=== PATIENT | female | born 1990 ===

== ENCOUNTER 2017-02-03 00:37 | Emergency (ER) | payer SELFPAY ==
[2017-02-03] MEDS ORDERED: Sodium Chloride 0.9% 1,000 ML IV ONE (00:55)
[2017-02-03] MEDS ORDERED: DiphenhydrAMINE 50 mg/ml Inj IVP STA (00:55)
--- NOTE | 2017-02-03 00:56 | C.PDOC ---
History Of Present Illness Patient presents to the ER with a sensation of her tongue swelling and difficulty swallowing that began at 21:00. Patient has not had any recent exposure to allergens, however, she reports drinking a new beer. Patient speaking in 4-5 sentences; denies fever, chills, nausea or vomiting. Time Seen by Provider: 02/03/17 00:54 Chief Complaint (Nursing): Allergic Reaction History Per: Patient History/Exam Limitations: no limitations Onset/Duration Of Symptoms: Hrs (21:00) Current Symptoms Are (Timing): Still Present Context: Food (Beer) Possible Cause: Food (Beer) Associated Symptoms: Swelling (Tongue), Trouble Swallowing Home/EMS Treatment: None Recent travel outside of the [place]: No Past Medical History Reviewed: Historical Data, Nursing Documentation, Vital Signs Vital Signs: Last Vital Signs Temp 97.9 F 02/03/17 02:43 Pulse 67 02/03/17 02:43 Resp 18 02/03/17 02:43 BP 121/75 02/03/17 02:43 Pulse Ox 96 02/03/17 02:43 - Medical History PMH: No Chronic Diseases Surgical History: No Surg Hx Family History: States: No Known Family Hx - Social History Hx Alcohol Use: Yes Hx Substance Use: No - Immunization History Hx Tetanus Toxoid Vaccination: Yes Hx Influenza Vaccination: No Hx Pneumococcal Vaccination: No Review Of Systems Constitutional: Negative for: Fever, Chills ENT: Positive for: Mouth Swelling (Tongue), Other (Difficulty swallowing) Gastrointestinal: Negative for: Nausea, Vomiting Physical Exam - Physical Exam Appears: Non-toxic Skin: Warm, Dry Ear(s): Bilateral: Normal Oral Mucosa: Moist Tongue: Normal Appearing, No Swelling Lips: Normal Appearing, No Swelling Gingiva: Normal Appearing, No Swelling Throat: Normal, No Erythema, No Other (Swelling) Chest: Symmetrical, No Tenderness Cardiovascular: Rhythm Regular, No Murmur Respiratory: No Rales, No Rhonchi, No Wheezing Gastrointestinal/Abdominal: Soft, No Tenderness Neurological/Psych: Oriented x3 ED Course And Treatment O2 Sat by Pulse Oximetry: 97 (Room air) Pulse Ox Interpretation: Normal Progress Note: Benadryl, pepcid, solu-medrol and IV fluids administered. Critical Care Time - Critical Care Note Total Time (in mins): 30 Documented critical care: time excludes all time spent performing seperately billable procedures. Disposition Counseled Patient/Family Regarding: Studies Performed, Diagnosis, Need For Followup, Rx Given - Disposition Referrals: [facility] [Outside] [facility] [Outside] Disposition: HOME/ ROUTINE Disposition Time: 00:55 Condition: IMPROVED Additional Instructions: Please also use benadryl, pepcid and claritin Prescriptions: Epinephrine [Epipen] 0.3 mg IJ ONCE PRN #1 [email or web address] PRN Reason: Anaphylaxis Prednisone [Deltasone] 20 mg PO DAILY #5 tablet Instructions: General Allergic Reaction (ED) - Clinical Impression Clinical Impression: Allergic reaction - Scribe Statement The provider has reviewed the documentation as recorded by the Scribe Provider Attestation: Salbador Becker All medical record entries made by the Scribe were at my direction and personally dictated by me. I have reviewed the chart and agree that the record accurately reflects my personal performance of the history, physical exam, medical decision making, and the department course for this patient. I have also personally directed, reviewed, and agree with the discharge instructions and disposition.
[2017-02-03] MEDS ORDERED: DiphenhydrAMINE 50 mg/ml Inj ONE (01:06)
[2017-02-03] MEDS ORDERED: Sodium Chloride 0.9% 1,000 ML ONE (01:06)
[2017-02-03 02:43] VITALS: BP 121/75; PULSE 67; RESP 18; TEMP 97.9
[2017-02-03 02:58] VITALS: O2SAT 97
== END 2017-02-03 03:09 | disposition home or self-care (01) ==
LOC: C.ER 00:37
DX: T78.1XXA Other adverse food reactions, not elsewhere classified, initial encounter (principal); R13.10 Dysphagia, unspecified; X58.XXXA Exposure to other specified factors, initial encounter
CPT/HCPCS: 96361; 96374; 96375; 99284; J1200; J2930; J7040

== ENCOUNTER 2017-02-06 19:53 | Emergency (ER) | payer SELFPAY ==
[2017-02-06 20:09] VITALS: O2SAT 98
--- NOTE | 2017-02-06 20:11 | C.PDOC ---
History Of Present Illness 26 y/o F c no PMHx p/w throat swelling x 3 hours. Feels like her throat is swelling up, causing her voice to be different. She denies any new exposures today. She reports pain in the throat which is worse with swallowing. She states she had abdominal pain yesterday. Denies fever, chest pain, wheezing, cough. She was in this ER 3 days ago with the same symptoms. At that time, she states she had a new beer. She was treated with steroids, pepcid, benadryl, and IVF and she states that when she left the ER, she felt much better. Time Seen by Provider: 02/06/17 20:04 Chief Complaint (Nursing): Shortness Of Breath Past Medical History Vital Signs: Last Vital Signs Temp 97.9 F 02/06/17 20:04 Pulse 102 H 02/06/17 20:04 Resp 20 02/06/17 20:37 BP 144/97 H 02/06/17 20:04 Pulse Ox 98 02/06/17 21:45 Family History: States: No Known Family Hx - Social History Hx Alcohol Use: Yes Hx Substance Use: No - Immunization History Hx Tetanus Toxoid Vaccination: Yes Hx Influenza Vaccination: No Hx Pneumococcal Vaccination: No Review Of Systems Except As Marked, All Systems Reviewed And Found Negative. Constitutional: Negative for: Fever Cardiovascular: Negative for: Chest Pain Physical Exam - Physical Exam Additional Physical Exam Comments: Constitutional: No acute distress. Head: Normocephalic. Atraumatic. Eyes: PERRL. ENT: Moist mucous membranes. No lip or tongue swelling. Airway patent. Neck: Supple. No masses palpated. Cardiovascular: Regular rate. Radial pulses 2+ bilaterally. Chest: No tenderness. Respiratory: Clear to auscultation bilaterally. No wheezing. No stridor. GI: Soft. Nontender. Nondistended. Back: No CVA tenderness. Musculoskeletal: No tenderness or swelling of extremities. Skin: No rash. Neurologic: Alert, no focal deficit. ED Course And Treatment O2 Sat by Pulse Oximetry: 98 (Room air) Pulse Ox Interpretation: Normal Medical Decision Making Medical Decision Making: Will treat with medications as 3 days ago. Will also add soft tissue neck film and rapid strep. Patient appears well with no discernible swelling on exam. Rapid strep negative. Soft Tissue Neck X-ray: FINDINGS: Airway: Unremarkable. No abnormal narrowing. Bones/joints: Unremarkable. Soft tissues: Unremarkable. No abnormal soft tissue prominence. Normal epiglottis. IMPRESSION: Normal neck x-rays. Patient states she feels much better after ER treatment. Patient has prescription for epi pen from previous visit. Advised continued benadryl and pepcid, 1 more dose of steroids tomorrow. Instructed to return to the ER for worsening breathing or swelling. Disposition - Disposition Disposition: HOME/ ROUTINE Disposition Time: 21:45 Condition: STABLE Instructions: Anaphylaxis (ED) - Clinical Impression Clinical Impression: Sensation of swollen throat
[2017-02-06] MEDS ORDERED: Sodium Chloride 0.9% 1,000 ML IV STA (20:15)
[2017-02-06] MEDS ORDERED: DiphenhydrAMINE 50 mg/ml Inj IVP STA (20:16)
[2017-02-06] MEDS ORDERED: methylPREDNISolone 125 MG in Sodium Chloride 0.9% 100 ML IVPB ONE (20:16)
[2017-02-06] MEDS ORDERED: DiphenhydrAMINE 50 mg/ml Inj ONE (20:21)
[2017-02-06] MEDS ORDERED: Sodium Chloride 0.9% 1,000 ML ONE (20:22)
[2017-02-06 22:01] VITALS: BP 117/80; PULSE 80; RESP 16; TEMP 98.2
--- NOTE | 2017-02-07 10:47 | RAD ---
PROCEDURE: Radiographs of the neck (soft tissue). HISTORY: sore throat, voice change, feels swelling COMPARISON: None. TECHNIQUE: Frontal and Lateral Radiographs of the neck, optimized for soft tissue visualization. FINDINGS: SOFT TISSUES: There is no prevertebral soft tissue thickening. No radiopaque foreign body seen. There is normal appearance of the epiglottis. CERVICAL SPINE: Normal in appearance the. OTHER FINDINGS: The airway is patent. IMPRESSION: No evidence of radiopaque foreign body or prevertebral soft tissue thickening.
== END 2017-02-06 22:01 | disposition home or self-care (01) ==
LOC: C.ER 19:53
DX: J39.2 Other diseases of pharynx (principal)
CPT/HCPCS: 70360; 87070; 87430; 96365; 96375; 99284; J1200; J1885; J2930; J7040

== ENCOUNTER 2017-02-13 16:47 | Emergency (ER) | payer MEDICAID, OTHER ==
[2017-02-13 16:53] VITALS: BP 128/99; PULSE 82; RESP 16; TEMP 97.9; O2SAT 100
--- NOTE | 2017-02-13 17:35 | C.PDOC ---
History Of Present Illness 26 y/o female presents to the ED with complaints of sore throat x1 week, worse today with white patches on tonsils. Pt was seen in ED twice recently but symptoms persist. Denies fever, chills, SOB or any other complaints. Time Seen by Provider: 02/13/17 17:00 Chief Complaint (Nursing): ENT Problem History Per: Patient History/Exam Limitations: no limitations Onset/Duration Of Symptoms: Days Current Symptoms Are (Timing): Worse Location Of Pain: Throat Sick Contacts (Context): None Associated Symptoms: Sore Throat. denies: Fever, Cough Severity: Moderate Recent travel outside of the [place]: No Past Medical History Reviewed: Historical Data, Nursing Documentation, Vital Signs Vital Signs: Last Vital Signs Temp 97.9 F 02/13/17 16:52 Pulse 82 02/13/17 16:52 Resp 16 02/13/17 16:52 BP 128/99 H 02/13/17 16:52 Pulse Ox 100 02/13/17 18:16 Family History: States: Unknown Family Hx - Social History Hx Alcohol Use: Yes Hx Substance Use: No - Immunization History Hx Tetanus Toxoid Vaccination: Yes Hx Influenza Vaccination: No Hx Pneumococcal Vaccination: No Review Of Systems Constitutional: Negative for: Fever, Chills ENT: Positive for: Throat Pain Respiratory: Negative for: Cough, Shortness of Breath Physical Exam - Physical Exam Appears: Non-toxic, No Acute Distress Skin: Warm, Dry, No Rash Head: Atraumatic, Normacephalic Eye(s): bilateral: Normal Inspection, EOMI Ear(s): Bilateral: Normal Nose: Normal Oral Mucosa: Moist Tongue: Normal Appearing Lips: Normal Appearing Throat: Erythema, Exudate (right tonsil, mild swelling), No Drooling, Other ( uvula midline) Neck: Normal, Normal ROM, Supple Chest: Symmetrical Cardiovascular: Rhythm Regular, No Murmur Respiratory: Normal Breath Sounds, No Wheezing Gastrointestinal/Abdominal: Normal Exam, Soft, No Tenderness Extremity: Bilateral: Atraumatic Neurological/Psych: Oriented x3, Normal Speech ED Course And Treatment O2 Sat by Pulse Oximetry: 100 (room air) Pulse Ox Interpretation: Normal Medical Decision Making Medical Decision Making: Impression: throat pain Prior records reviewed patient was seen in ED 02/03/17 had labs, xray and culture performed with normal and negative findings. Treated with Benadryl, Pepcid and prednisone and improved. Patient also seen 02/03/17 for allergic reaction Plan: Strep and culture Progress: Strep was negative. Will treat for pharyngitis.Patient remained afebrile alert and oriented with stable vital signs during ER evaluation. Patient feels comfortable going home and will be discharged. Patient given follow up instructions. Instructed to return to ER if symptoms worsen or new symptoms arise. Disposition Counseled Patient/Family Regarding: Diagnosis, Need For Followup, Rx Given - Disposition Referrals: [facility] [Outside] [facility] [Outside] Disposition: HOME/ ROUTINE Disposition Time: 17:50 Condition: STABLE Additional Instructions: Take Tylenol or Motrin alternating every 4-6 hours for Fever 100.4F or higher. Rest and drink plenty of fluids to prevent dehydration. Try vanilla ice cream to improve eating/drinking, this is cold soothing and tastes good. May also try lozenges or cepacol spary over the counter. 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 - Scribe Statement The provider has reviewed the documentation as recorded by the Scribemma Jc All medical record entries made by the Odinibemma were at my direction and personally dictated by me. I have reviewed the chart and agree that the record accurately reflects my personal performance of the history, physical exam, medical decision making, and the department course for this patient. I have also personally directed, reviewed, and agree with the discharge instructions and disposition.
== END 2017-02-13 18:19 | disposition home or self-care (01) ==
LOC: C.ER 16:47
DX: J02.9 Acute pharyngitis, unspecified (principal); Z72.0 Tobacco use